=== PATIENT | female | born 1985 | race Caucasian/White ===

== ENCOUNTER 2018-08-31 22:45 | Outpatient (CLI) | payer BC ==
[~2018-08-31] VITALS: Ht 172.1 cm; Wt 93.0 kg
[~2018-08-31 22:45] MED LIST: B/C; DOCU240C67 PO; OMEG500C5 PO; OND4 PO; PREN-119 PO; TUCKS TP
[2018-08-31] MEDS ORDERED: LR(*) 1000 ML BAG 1,000 ML IV PRN (22:47)
[2018-08-31 23:00] VITALS: BP 110/66; Ht 172.1 cm; Wt 93.0 kg
== END 2018-09-01 00:14 | disposition home or self-care (01) ==
LOC: UNDOADMOB 22:45 → L&D 22:45 → OB 22:45 → UNDODISOB 09-01 00:14 → L&D 09-01 00:14 → EDSTATUS 09-19 11:14
PROVIDERS: ATTEND Obstetrics & Gynecology
DX: O26.893 Other specified pregnancy related conditions, third trimester (principal); W10.8XXA Fall (on) (from) other stairs and steps, initial encounter; Z3A.37 37 weeks gestation of pregnancy
CPT/HCPCS: 84112; 99213

== ENCOUNTER 2018-09-19 22:36 | Inpatient (IN) | payer BC ==
[~2018-09-19] VITALS: Ht 170.2 cm; Wt 94.3 kg
[2018-09-19] MEDS ORDERED: FAMOTIDINE(*) 20MG/50ML PREMIX 50 ML IVPB PRN (22:43)
[2018-09-19] MEDS ORDERED: OXYTOCIN 30 UNIT/D5LR 500 ML 500 ML IV PRN (22:43)
[2018-09-19] MEDS ORDERED: LR(*) 1000 ML BAG 1,000 ML IV SCH (22:43)
[2018-09-19] MEDS ORDERED: LIDOCAINE/SOD BICARB 8.4% SYR SC PRN (22:45)
[2018-09-19] MEDS ORDERED: FLUSH 10 ML SYR IVP PRN (22:45)
[2018-09-19] MEDS ORDERED: TERBUTALINE SULF 1 MG/ML VIAL SUBQ PRN (22:45)
[2018-09-19] MEDS ORDERED: METOCLOPRAMIDE 10 MG/2 ML SDV IVP PRN (22:45)
[2018-09-19] MEDS ORDERED: fentaNYL CITR 100 MCG/2 ML AMP IVP PRN (22:45)
[2018-09-19] MEDS ORDERED: LIDOCAINE 1% LOCAL 300 MG/30ML INJ PRN (22:45)
[2018-09-19 22:47] VITALS: BP 134/71; Ht 170.2 cm; Wt 94.3 kg
[2018-09-19 23:55] LABS: PLATELET COUNT, AUTOMATED 261 K/uL (150-450)
[2018-09-20] MEDS ORDERED: ONDANSETRON 4 MG/2 ML VIAL IVP PRN (00:15)
[2018-09-20] MEDS ORDERED: HYDROCORTISONE 2.5% CR 30GM TB PR PRN (02:45)
[2018-09-20] MEDS ORDERED: APAP/HYDROCODONE 325/5 TAB PO PRN (02:45)
[2018-09-20] MEDS ORDERED: IBUPROFEN 800 MG TAB PO SCH ×3 (02:45→23:00)
[2018-09-20] MEDS ORDERED: MAGNESIUM HYDROXIDE* 30ML UDCP PO PRN (02:45)
[2018-09-20] MEDS ORDERED: MEASLES,MUMP,RUBELLA VAC 0.5ML SC ONE (02:45)
[2018-09-20] MEDS ORDERED: ACETAMINOPHEN 325 MG TAB PO PRN (02:45)
[2018-09-20] MEDS ORDERED: INFLUENZA VIRUS VAC 0.5ML SYR IM ONLY ONE (02:45)
[2018-09-20] MEDS ORDERED: DIPHTH/TETANUS/ACEL. PERTUSSIS IM ONE (02:45)
[2018-09-20] MEDS ORDERED: GLYCERIN/WITCH HAZEL LEAF 1 PK TOP PRN (02:45)
[2018-09-20] MEDS ORDERED: BENZOCAINE 20% 60 ML BTL TP PRN (02:45)
[2018-09-20] MEDS ORDERED: LANOLIN OINT 7 GM TUBE TP PRN (02:45)
--- NOTE | 2018-09-20 02:50 | History & Physical ---
History of Present Illness EDC per LMP: Sep 16, 2018 Estimated Gestational Age: 40.3 Chief Complaint Labor History of Present Illness 32yo at 40w3d presented in spontaneous labor. She denied LOF, VB or preeclampsia symptoms. +FM. PNC by [facility]. PNR reviewed. History Patient's Blood Type: A Positive Rubella Status: Immune Group B Strep Screen: Negative Obstetrical History: G1: 42wk G2: Current Past Medical History: PMH: None PSH: Left ovarian cystectomy Allergies: Coded Allergies: Penicillins (Verified Allergy, Unknown, 06/14/14) Social History: , present and supportive. No noxious habits. Med Rec Home Meds Active Scripts Glycerin/[employer] [place] (PREPARATION H) 1 Pkg Pad, 0 PKG TP PRN PRN for PAIN, #1 PAD Prov:KACEY ESPARZA MD 06/15/14 Docusate Calcium (DOCUSATE CALCIUM) 240 Mg Cap, 240 MG PO BID, #20 CAPSULE Prov:KACEY ESPARZA MD 06/15/14 Reported Medications [place]-3 Fatty Acids (FISH OIL) 500 Mg Capsule.dr, 500 MG PO DAILY 06/13/14 Vit/Iron Fumarate/Fa ( VITAMIN TABLET) 1 Each Tablet, 1 EACH PO DAILY 06/13/14 Review of Systems Constitutional: No Fever Neurological: No Syncope Eyes: No Vision Change Cardiovascular: No Chest Pain Respiratory: No Shortness of Breath, No Cough Gastrointestinal: No Nausea, No Vomiting, No Diarrhea Genitourinary: No Dysuria Musculoskeletal: No Pain Psychiatric: No Depression, No Anxiety Exam General Exam Vital Signs Vital Signs Date Time Temp Pulse Resp B/P (MAP) Pulse Ox O2 Delivery O2 Flow Rate FiO2 09/19/18 22:47 98.4 58 18 134/71 (92) 99 Room Air General Apperance: Alert/Awake/No Acute Distress Neuro: No Gross deficits Eyes: Normal Extraocular Movement & Vison Cardiovascular: Regular Rate and Rhythm Respiratory: No Respiratory Distress, Clear to Auscultation Abdomen: Gravid - Non-Tender : Normal Musculoskeletal: No Weakness/Pain Extremities: No Cyanosis,Clubbing or Edema Integumentary: Skin Intact without Lesions or Rash Psychological: Alert & Oriented X3, Appropriate Mood & Affect Cervical Dialation: 10 Cervical Effacement (%): 100 Cervical Consistency: Soft Cervical Position: Mid Station: 0 Presentation: Vertex Uterine Contractions(Q min): 3 Uterine Contraction Strength: Strong UC Resting Tone: Soft Fetus FHT Category: I Medical Decision Making Data Points Result Diagram: 09/19/18 7772 Assessment and Plan Problems: (1) Spontaneous onset of labor Assessment & Plan: 32yo at 40w3d presented in spontaneous labor. She progressed from 4cm at 2302 to 8cm at 0137. Anticipate . GBS negative. (2) 40 weeks gestation of CELESTE LEDESMA MD Sep 20, 2018 02:50
--- NOTE | 2018-09-20 02:53 | OB Delivery Note ---
Delivery Note Vaginal Delivery Type: Spont. Vaginal Delivery Delivery Date: Sep 20, 2018 Delivery Time: 02:15 Estimated Gestational Age(wks): 40w3d Length of Labor Stage II (hrs): 0.3 Labor Stage III (minutes): 18 Delivery Anesthesia: Local Sex: Male Priddy Apgars: 1 Minute (7), 5 Minute (9) Repair Needed: Vaginal Estimated Blood Loss: 300 Delivery Complications: Other (Meconium) CELESTE LEDESMA MD Sep 20, 2018 02:53
[2018-09-20] MEDS ORDERED: IBUP800T37 PO (02:58)
[2018-09-20] MEDS ORDERED: LOR5/325 PO (02:58)
[2018-09-20 07:40] VITALS: BP 101/60
--- NOTE | 2018-09-20 08:02 | OB/GYN Progress Note ---
OB Subjective Progress Notes Subjective Doing well. Pain controlled with oral medications. Tolerating regular diet. Ambulating. Voiding. Normal lochia. No preeclampsia symptoms. OB Objective Physical Exam Vital Signs Date Time Temp Pulse Resp B/P (MAP) Pulse Ox O2 Delivery O2 Flow Rate FiO2 09/19/18 22:47 98.4 58 18 134/71 (92) 99 Room Air Intake and Output 09/20/18 07:00 Intake Total 500 ml Output Total 550 ml Balance -50 ml Intake IV Total 500 ml Output Urine Total 550 ml # Voids 2 General Appearance: Alert/Awake/No Acute Distress Neurological: No Gross deficits Eyes: Normal Extraocular Movement & Vison Cardiovascular: Normal Rhythm & Peripheral Pulses, Regular Rate and Rhythm Respiratory: No Respiratory Distress, Clear to Auscultation Abdomen: Soft, Non-Tender, Non-Distended, Fundus Firm Musculoskeletal: No Weakness/Pain Extremities: No Cyanosis,Clubbing or Edema Integumentary: Skin Intact without Lesions or Rash Psychological: Alert & Oriented X3, Appropriate Mood & Affect Result Diagram: 09/19/18 3151 Assessment and Plan Problems: (1) care following vaginal delivery Status: Acute Assessment & Plan: PPD#0 s/p . She is doing well. Anticipate home tomorrow. CELESTE LEDESMA MD Sep 20, 2018 08:02
[2018-09-20] MEDS: DOCUSATE CALCIUM 240 MG CAP PO SCH ×2 (09:34→21:07)
[2018-09-20 13:30] VITALS: BP 104/62
[2018-09-20 19:42] VITALS: BP 119/69
[2018-09-20 22:42] VITALS: BP 149/79
[2018-09-20] MEDS: IBUPROFEN 800 MG TAB PO SCH (22:56)
--- NOTE | 2018-09-21 03:01 | DELIVERY NOTE ---
DELIVERY DATE: September 20, 2018 SURGEON: Thelma Hernandez MD ANESTHESIA: Local infiltration of 1% lidocaine. PREOPERATIVE DIAGNOSIS Intrauterine at 40 weeks and 3 days, presenting in spontaneous active labor. POSTOPERATIVE DIAGNOSES 1. Intrauterine at 40 weeks and 3 days, presenting in spontaneous active labor. 2. Delivery of a viable male at 0215 hours weighing 3284grams with Apgars of 7 at one minute and 9 at five minutes. PROCEDURE Spontaneous vaginal delivery. ESTIMATED BLOOD LOSS 300 mL. INDICATIONS This patient is a 32-year-old 2, para 1, who presented at 40 weeks and 3 days in spontaneous active labor. She presented at 2302 hours on 09/19/18 dilated to /-1. She then progressed to complete on her own at 0156 hours, at which time she was allowed to initiate pushing. While she was pushing and bringing the infant's vertex to the perineum, spontaneous rupture of membranes occurred with a very small amount of clear fluid at 0208 hours. She then continued to progress and was able to initiate . PROCEDURE The patient was properly identified. She had been placed in the dorsal lithotomy position and was pushing effectively. She was able to bring the 's vertex to the perineum and then deliver the 's vertex over an intact perineum in the AIDAN position. A nuchal cord was checked but not noted. The anterior shoulder delivered easily, followed posterior shoulder. The remainder of the infant then easily delivered. At that time, meconium-stained fluid was noted. The did have spontaneous cry and spontaneous movement of all four extremities. The infant's oropharynx and nasopharynx were bulb- suctioned. The was then passed to the mother's abdomen in good condition. After two minutes, the cord was clamped x2 and cut by the father of the baby. Cord blood was then obtained and passed off the table, and Pitocin was started through the IV fluid to help firm the uterus. The placenta was not quite ready for delivery. Therefore, examination of the vaginal vault revealed a second- degree laceration within the vaginal vault just inside the vaginal introitus. This was anesthetized with 1% lidocaine and then reapproximated using a 2-0 Vicryl. Once this was completed, the placenta did deliver spontaneously at 0233 hours and was passed off the table. Further examination of the cervix, vaginal vault, and perineum revealed no additional lacerations. The patient tolerated this procedure well and recovered in Labor and Delivery with her . STAN
[2018-09-21 03:20] VITALS: BP 117/75
--- NOTE | 2018-09-21 06:26 | OB/GYN Progress Note ---
OB Subjective Progress Notes Subjective Pt is sleeping right now, but has been doing very well. RN reports pt is anxious to go home and is meeting milestones. I visited her last night and at that time her milestones were met. OB Objective Physical Exam Vital Signs Date Time Temp Pulse Resp B/P (MAP) Pulse Ox O2 Delivery O2 Flow Rate FiO2 09/21/18 03:20 97.7 55 15 117/75 (89) 95 Room Air Intake and Output 09/21/18 07:00 Intake Total 120 ml Output Total 900 ml Balance -780 ml Intake Oral 120 ml Output Urine Total 900 ml # Voids 1 General Appearance: Other (Sleeping) Respiratory: No Respiratory Distress Abdomen: Soft, Non-Tender, Non-Distended, Fundus Firm (per RN) Psychological: Alert & Oriented X3, Appropriate Mood & Affect Result Diagram: 09/19/18 7219 Assessment and Plan Problems: (1) care following vaginal delivery Status: Acute Assessment & Plan: PPD#2. Meeting milestones. Desires discharge to home today. Discussed routine expectations. Questions answered. Follow up in clinic in 6wks for check. CELESTE LEDESMA MD Sep 21, 2018 06:26
--- NOTE | 2018-09-21 06:28 | OB/GYN Discharge Summary ---
Discharge Summary Reason for Hosp/Final Diag: (1) care following vaginal delivery Status: Acute Hospital Course & Plan: PPD#2. Meeting milestones. Desires discharge to home today. Discussed routine expectations. Questions answered. Follow up in clinic in 6wks for check. [place] Vital Signs Vital Signs Date Time Temp Pulse Resp B/P (MAP) Pulse Ox O2 Delivery O2 Flow Rate FiO2 09/21/18 03:20 97.7 55 15 117/75 (89) 95 Room Air Weight (Pounds): 208 Result Diagram: 09/19/18 2332 Condition: Improved Discharge: Home, Self Senior Living Meds Active Scripts Hydrocodone Bit/Acetaminophen (HYDROCODON-ACETAMINOPHEN 5-325) 1 Each Tablet, 1 EACH PO Q4-6H PRN for pain, #20 TAB 0 Refills Prov:CELESTE LEDESMA MD 09/20/18 Glycerin/[employer] [place] (PREPARATION H) 1 Pkg Pad, 0 PKG TP PRN PRN for PAIN, #1 PAD Prov:KACEY ESPARZA MD 06/15/14 Docusate Calcium (DOCUSATE CALCIUM) 240 Mg Cap, 240 MG PO BID, #20 CAPSULE Prov:KACEY ESPARZA MD 06/15/14 Reported Medications [place]-3 Fatty Acids (FISH OIL) 500 Mg Capsule.dr, 500 MG PO DAILY 06/13/14 Vit/Iron Fumarate/Fa ( VITAMIN TABLET) 1 Each Tablet, 1 EACH PO DAILY 06/13/14 Follow up Referrals: [facility] - In Two Weeks @ [facility] Discharge Diet: As Tolerates Discharge Activity: Pelvic Rest CELESTE LEDESMA MD Sep 21, 2018 06:28
[2018-09-21] MEDS: IBUPROFEN 800 MG TAB PO SCH (07:45)
[2018-09-21 08:25] VITALS: BP 113/63
[2018-09-21] MEDS: DOCUSATE CALCIUM 240 MG CAP PO SCH (08:51)
== END 2018-09-21 10:45 | disposition home or self-care (01) | DRG 807 ==
LOC: OB 22:36
PROVIDERS: ADMIT Obstetrics & Gynecology; ATTEND Obstetrics & Gynecology
PROC: 10E0XZZ Delivery of Products of Conception, External Approach (ICD-10-PCS; principal; 2018-09-20)
PROC: 0KQM0ZZ Repair Perineum Muscle, Open Approach (ICD-10-PCS; 2018-09-20)
DX: O77.0 Labor and delivery complicated by meconium in amniotic fluid (principal); Z37.0 Single live birth; O70.1 Second degree perineal laceration during delivery; Z3A.40 40 weeks gestation of pregnancy
CPT/HCPCS: 36415; 85025; 86703; 86850; 86900; 86901; J2001; J2405; J2590; J7120